=== PATIENT | female | born 1975 | race Caucasian/White ===

== ENCOUNTER 2017-02-23 08:13 | Emergency (ER) | payer BC, OTHER | END 2017-02-23 09:45 | disposition home or self-care (01) | LOC: D.ER 08:13 | DX: T14.8 Other injury of unspecified body region (principal); M25.562 Pain in left knee; M25.561 Pain in right knee; S59.902A Unspecified injury of left elbow, initial encounter; V29.9XXA Motorcycle rider (driver) (passenger) injured in unspecified traffic accident, initial encounter; Y93.89 Activity, other specified; Y92.410 Unspecified street and highway as the place of occurrence of the external cause; S69.91XA Unspecified injury of right wrist, hand and finger(s), initial encounter; E06.3 Autoimmune thyroiditis ==

== ENCOUNTER → 2020-11-26 07:53 | Outpatient (CLI) | payer OTHER | END | disposition home or self-care (01) | LOC: D.MRI 07:53 | PROVIDERS: ATTEND Clinical Nurse Specialist Family Health | DX: M79.672 Pain in left foot (principal) ==